=== PATIENT | female | born 1995 | race African-American/Black ===

== ENCOUNTER 2018-04-21 05:51 | Inpatient (IN) ==
[2018-04-21] MEDS ORDERED: MEPERIDINE 50 MG/1 ML VIAL IV PRN (06:00)
[2018-04-21] MEDS ORDERED: OXYTOCIN/LR 20 UNIT/1,000 ML BAG IV SCH (06:00)
[2018-04-21] MEDS ORDERED: LACTATED RINGERS 250 ML IV ONE (06:00)
[2018-04-21] MEDS ORDERED: ONDANSETRON 4 MG/2 ML VIAL IV PRN (06:00)
[2018-04-21] MEDS ORDERED: BUTORPHANOL 2 MG/ML VIAL IV PRN (06:00)
[2018-04-21] MEDS: LACTATED RINGERS 1,000 ML IV SCH ×2 (06:20→11:40)
[2018-04-21 06:46] LABS: Basophils % 0.1 % (0.0-0.8); Eosinophils # 0.1 10*3/uL (0.0-0.87); Eosinophils % 0.7 % (0.00-10.9); Hematocrit 34.8 VOL% (35.7-47.0); Hemoglobin 11.1 GM/DL (12.0-16.0); Immature Granulocytes % 0.4 %; Immature Granulocytes Absolute 0.03 #; Mean Corpuscular HGB Conc 31.9 GM/DL (32-36); Mean Corpuscular Hemoglobin 30 PG (27-34); Mean Corpuscular Volume 94.6 FL (87-102); Mean Platelet Volume 10.4 FL (9.6-12.0); Monocytes # 0.7 10*3/uL (0.11-0.8); Monocytes % 8.6 % (1.7-12.7); Neutrophils # 4.3 10*3/uL (1.4-7.4); Neutrophils % 53.2 % (38.7-73.9); Platelet Count 234 T/CUMM (130-400); Red Blood Count 3.68 MC/CUMM (3.8-5.5); Red Cell Distribution Width 14.3 % (9.3-17.3); White Blood Count 8.1 T/CUMM (4-12)
[2018-04-21] MEDS ORDERED: AMPICILLIN INJ 2,000 MG in SODIUM CHLORIDE 0.9% 100 ML IV SCH (07:00)
[2018-04-21 07:11] LABS: Albumin 2.7 G/DL (3.4-5.0); Bilirubin,Total 0.4 MG/DL (0.2-1.0); Calcium 8.9 MG/DL (8.5-10.1); Osmolality,Calculated 276.4 MOS/KG (273-304); Potassium 3.7 MMOL/L (3.5-5.1); Total Protein 6.6 G/DL (6.4-8.3)
[2018-04-21] MEDS ORDERED: diphenhydrAMINE 50 MG/1 ML VIAL IV PRN ×2 (09:33)
[2018-04-21] MEDS ORDERED: NALOXONE 0.4 MG/ML VIAL IV PRN (09:33)
[2018-04-21] MEDS ORDERED: hydrOXYzine HCL 25 MG/1 ML VIAL IM PRN (09:33)
[2018-04-21] MEDS ORDERED: LACTATED RINGERS 500 ML IV ONE (09:33)
[2018-04-21] MEDS ORDERED: PROMETHAZINE 25 MG/1 ML VIAL IM ONE (09:33)
[2018-04-21] MEDS ORDERED: LACTATED RINGERS 1,000 ML IV ONE (09:33)
[2018-04-21] MEDS ORDERED: ePHEDrine 50 MG/ML AMP IV PRN (09:33)
[2018-04-21] MEDS ORDERED: LACTATED RINGERS 1,000 ML IV SCH (10:00)
[2018-04-21] MEDS ORDERED: fentaNYL 2 MCG/ROPIV 0.2% EPID 100 ML EPIDURAL SCH (10:00)
[2018-04-21] MEDS ORDERED: FAMOTIDINE 20 MG/2 ML VIAL IV ONE (11:19)
[2018-04-21] MEDS ORDERED: CITRIC ACID/SODIUM CITRATE 30 ML UDCUP PO ONE (11:21)
[2018-04-21] MEDS ORDERED: AMPICILLIN INJ 1,000 MG in SODIUM CHLORIDE 0.9% 100 ML IV SCH (11:45)
[2018-04-21 13:02] LABS: Apearance,Urine CLEAR (Clear); Bilirubin,Urine Negative (Negative); Blood, Urine Negative (Negative); Glucose,Urine (UA) Negative (Negative); Hyaline Casts,Urine 1 /LPF (0-3); Ketones,Urine Negative (Negative); Mucus,Urine Occasional /LPF (Occasional); Nitrite,Urine Negative (Negative); Protein,Urine Negative; RBC,Urine 1 /HPF (0-4); Urine Color Yellow (Yellow); Urine Specific Gravity 1.025 (1.001-1.035); WBC,Urine 1 /HPF (0-6)
[2018-04-21 14:57] LABS: Cord Venous Blood PCO2 60.7 MMHG; Cord Venous Blood PO2 27.1 MMHG
[2018-04-21] MEDS ORDERED: OXYTOCIN/LR 20 UNIT/1,000 ML BAG IV ONE (16:40)
[2018-04-21] MEDS ORDERED: ACETAMINOPHEN/CODEINE 300-30 MG TABLET PO PRN (17:44)
[2018-04-21] MEDS ORDERED: RHO(D) IMMUNE GLOBULIN 300 MCG SYRINGE IM ONE (17:44)
[2018-04-21] MEDS ORDERED: BENZOCAINE 20%/MENTHOL 0.5% SPRAY 56 GM CAN TOP PRN (17:44)
[2018-04-21] MEDS ORDERED: WITCH HAZEL PADS 100/JAR TOP PRN (17:44)
[2018-04-21] MEDS ORDERED: ACETAMINOPHEN 325 MG TABLET PO PRN (17:44)
[2018-04-21] MEDS ORDERED: DIPH/TET/ACEL PERT BOOSTER VACCINE 0.5 ML VIAL IM ONE (17:44)
[2018-04-21] MEDS ORDERED: HYDROCORTISONE 2.5% RECTAL CREAM 30 GM TUBE TOP PRN (17:44)
[2018-04-21] MEDS ORDERED: LANOLIN 50% CREAM 0.3 OZ TUBE TOP PRN (17:44)
[2018-04-21] MEDS ORDERED: oxyCODONE/ACETAMINOPHEN 5-325 MG TABLET PO PRN (17:44)
[2018-04-21] MEDS ORDERED: MEASLES/MUMPS/RUBELLA VACCINE 0.5 ML VIAL SUBCUT ONE (17:44)
[2018-04-21] MEDS ORDERED: BISACODYL 10 MG SUPP RECTAL PRN (17:44)
[2018-04-21] MEDS: IBUPROFEN 800 MG TABLET PO PRN (18:20)
[2018-04-21] MEDS: DOCUSATE SODIUM 100 MG CAPSULE PO SCH (22:01)
[2018-04-21] MEDS: oxyCODONE/ACETAMINOPHEN 5-325 MG TABLET PO PRN (23:15)
[2018-04-22 06:09] LABS: Basophils % 0.2 % (0.0-0.8); Eosinophils # 0.1 10*3/uL (0.0-0.87); Eosinophils % 0.6 % (0.00-10.9); Hematocrit 29.5 VOL% (35.7-47.0); Hemoglobin 9.3 GM/DL (12.0-16.0); Immature Granulocytes % 0.3 %; Immature Granulocytes Absolute 0.03 #; Lymphocytes # 3.3 10*3/uL (1.4-4.0); Lymphocytes % 30.7 % (21.3-54.2); Mean Corpuscular HGB Conc 31.5 GM/DL (32-36); Mean Corpuscular Hemoglobin 30 PG (27-34); Mean Corpuscular Volume 96.1 FL (87-102); Mean Platelet Volume 10.6 FL (9.6-12.0); Monocytes # 0.8 10*3/uL (0.11-0.8); Monocytes % 7.8 % (1.7-12.7); Neutrophils # 6.6 10*3/uL (1.4-7.4); Neutrophils % 60.4 % (38.7-73.9); Platelet Count 202 T/CUMM (130-400); Red Blood Count 3.07 MC/CUMM (3.8-5.5); Red Cell Distribution Width 14.5 % (9.3-17.3); White Blood Count 10.8 T/CUMM (4-12)
[2018-04-22] MEDS: oxyCODONE/ACETAMINOPHEN 5-325 MG TABLET PO PRN ×3 (06:36→23:36)
[2018-04-22] MEDS: IBUPROFEN 800 MG TABLET PO PRN ×3 (06:36→23:36)
[2018-04-22] MEDS: DOCUSATE SODIUM 100 MG CAPSULE PO SCH ×2 (08:50→21:34)
[2018-04-23 07:35] VITALS: BP 118/69
[2018-04-23] MEDS: DOCUSATE SODIUM 100 MG CAPSULE PO SCH (08:53)
[2018-04-23] MEDS ORDERED: INFLUENZA VIRUS VACCINE 0.5 ML SYRINGE IM ONE (12:06)
== END 2018-04-23 12:35 | disposition home or self-care (01) | DRG 560 ==
LOC: N.LDOUT 05:51 → N.LD 05:53 → N.OB 18:10
PROVIDERS: ADMIT Obstetrics & Gynecology; ATTEND Obstetrics & Gynecology

== ENCOUNTER 2020-12-30 07:10 | Inpatient (IN) ==
[2020-12-30] MEDS: LACTATED RINGERS 1,000 ML IV SCH ×2 (06:30→09:17)
[~2020-12-30 07:10] MED LIST: BUTORPHANOL 1 MG/ML VIAL IV PRN; BUTORPHANOL 2 MG/ML VIAL IV PRN; LACTATED RINGERS 1,000 ML IV PRN; LACTATED RINGERS 500 ML IV PRN; MEPERIDINE 50 MG/1 ML VIAL IV PRN; ONDANSETRON 4 MG/2 ML VIAL IV PRN
[2020-12-30] MEDS ORDERED: OXYTOCIN/LR 20 UNIT/1,000 ML BAG IV SCH (07:30)
[2020-12-30] MEDS ORDERED: LACTATED RINGERS 1,000 ML IV ONE (07:31)
[2020-12-30] MEDS ORDERED: CITRIC ACID/SODIUM CITRATE 30 ML UDCUP PO ONE (07:31)
[2020-12-30] MEDS ORDERED: FAMOTIDINE 20 MG/2 ML VIAL IV ONE (07:31)
[2020-12-30] MEDS ORDERED: NALOXONE 0.4 MG/ML VIAL IV PRN (07:32)
[2020-12-30] MEDS ORDERED: hydrOXYzine HCL 25 MG/1 ML VIAL IM PRN (07:32)
[2020-12-30] MEDS ORDERED: diphenhydrAMINE 50 MG/1 ML VIAL IV PRN ×2 (07:32)
[2020-12-30] MEDS ORDERED: PROMETHAZINE 25 MG/1 ML VIAL IM ONE (07:32)
[2020-12-30 08:00] LABS: Basophils % 0.3 % (0.0-0.8); Eosinophils % 0.4 % (0.00-10.9); Hematocrit 34.1 VOL% (35.7-47.0); Hemoglobin 11.1 GM/DL (12.0-16.0); Immature Granulocytes % 0.6 %; Immature Granulocytes Absolute 0.04 #; Lymphocytes # 2.5 10*3/uL (1.4-4.0); Lymphocytes % 36.2 % (21.3-54.2); Mean Corpuscular HGB Conc 32.6 GM/DL (32-36); Mean Corpuscular Volume 96.3 FL (87-102); Mean Platelet Volume 9.9 FL (9.6-12.0); Monocytes % 6.7 % (1.7-12.7); Neutrophils % 55.8 % (38.7-73.9); Platelet Count 232 T/CUMM (130-400); Red Blood Count 3.54 MC/CUMM (3.8-5.5); Red Cell Distribution Width 14.1 % (9.3-17.3); White Blood Count 6.8 T/CUMM (4-12)
[2020-12-30] MEDS ORDERED: fentaNYL 2 MCG/ROPIV 0.2% EPID 100 ML EPIDURAL SCH (08:00)
[2020-12-30 08:21] LABS: Albumin 2.7 G/DL (3.4-5.0); Bilirubin,Total 0.4 MG/DL (0.2-1.0); Calcium 8.6 MG/DL (8.5-10.1); Osmolality,Calculated 269.8 MOS/KG (273-304); Potassium 3.8 MMOL/L (3.5-5.1); Total Protein 6.7 G/DL (6.4-8.2)
[2020-12-30] MEDS: ePHEDrine 50 MG/ML VIAL IV PRN ×2 (08:47→08:54)
[2020-12-30 09:37] LABS: Bilirubin,Urine Negative (Negative); Blood, Urine Negative (Negative); Glucose,Urine (UA) Negative (Negative); Ketones,Urine Negative (Negative); Mucus,Urine Few /LPF (Occasional); Nitrite,Urine Negative (Negative); Protein,Urine 30 MG/DL; RBC,Urine 2 /HPF (0-4); Squamous Epithelial Cell,Urine Occasional /HPF (0-10); Urine Appearance CLEAR (Clear); Urine Color Yellow (Yellow); Urine Urobilinogen < 2.0 EU/DL (0.2-1.0)
[2020-12-30] MEDS ORDERED: miSOPROStoL 200 MCG TABLET ONE (12:27)
[2020-12-30] MEDS ORDERED: CARBOPROST TROMETHAMINE 250 MCG/ML AMP IM ONE (12:28)
[2020-12-30] MEDS ORDERED: METHYLERGONOVINE 0.2 MG/1 ML AMP ONE (12:28)
[2020-12-30 14:20] LABS: Cord Arterial Blood HCO3 23.6 MMOL/L
[2020-12-30 14:23] LABS: Cord Venous Blood HCO3 22.6 MMOL/L; Cord Venous Blood PCO2 43.1 MMHG; Cord Venous Blood PO2 28.8 MMHG
[2020-12-30] MEDS ORDERED: RHO(D) IMMUNE GLOBULIN 300 MCG SYRINGE IM ONE (16:52)
[2020-12-30] MEDS ORDERED: oxyCODONE/ACETAMINOPHEN 5-325 MG TABLET PO PRN ×2 (16:52)
[2020-12-30] MEDS ORDERED: OXYTOCIN/LR 20 UNIT/1,000 ML BAG IV ONE (16:52)
[2020-12-30] MEDS ORDERED: LANOLIN 50% CREAM 0.3 OZ TUBE TOP PRN (16:52)
[2020-12-30] MEDS ORDERED: MEASLES/MUMPS/RUBELLA VACCINE 0.5 ML VIAL SUBCUT ONE (16:52)
[2020-12-30] MEDS ORDERED: HYDROCORTISONE 2.5% RECTAL CREAM 30 GM TUBE TOP PRN (16:52)
[2020-12-30] MEDS ORDERED: BISACODYL 10 MG SUPP RECTAL PRN (16:52)
[2020-12-30] MEDS ORDERED: ACETAMINOPHEN 325 MG TABLET PO PRN (16:52)
[2020-12-30] MEDS ORDERED: DIPH/TET/ACEL PERT BOOSTER VACCINE 0.5 ML VIAL IM ONE (16:52)
[2020-12-30] MEDS ORDERED: WITCH HAZEL PADS 100/JAR TOP PRN (16:52)
[2020-12-30] MEDS ORDERED: BENZOCAINE 20%/MENTHOL 0.5% SPRAY 56 GM CAN TOP PRN (16:52)
[2020-12-30] MEDS: IBUPROFEN 800 MG TABLET PO PRN (18:10)
[2020-12-30] MEDS: DOCUSATE SODIUM 100 MG CAPSULE PO SCH (20:50)
[2020-12-31] MEDS: IBUPROFEN 800 MG TABLET PO PRN ×3 (00:57→21:42)
[2020-12-31 06:11] LABS: Basophils % 0.2 % (0.0-0.8); Eosinophils # 0.1 10*3/uL (0.0-0.87); Eosinophils % 0.5 % (0.00-10.9); Hematocrit 32.2 VOL% (35.7-47.0); Hemoglobin 10.4 GM/DL (12.0-16.0); Immature Granulocytes % 0.5 %; Immature Granulocytes Absolute 0.05 #; Lymphocytes # 2.8 10*3/uL (1.4-4.0); Lymphocytes % 27.3 % (21.3-54.2); Mean Corpuscular HGB Conc 32.3 GM/DL (32-36); Neutrophils % 65.5 % (38.7-73.9); Platelet Count 200 T/CUMM (130-400); Red Blood Count 3.32 MC/CUMM (3.8-5.5); White Blood Count 10.4 T/CUMM (4-12)
[2020-12-31] MEDS: DOCUSATE SODIUM 100 MG CAPSULE PO SCH ×2 (07:12→21:42)
[2021-01-01 07:47] VITALS: BP 130/81
[2021-01-01] MEDS: DOCUSATE SODIUM 100 MG CAPSULE PO SCH (08:52)
== END 2021-01-01 12:35 | disposition home or self-care (01) | DRG 560 ==
LOC: N.LD → N.OB 16:49
PROVIDERS: ADMIT Obstetrics & Gynecology; ATTEND Obstetrics & Gynecology